=== PATIENT | female | born 1990 | race Hispanic/Latino ===

== ENCOUNTER 2018-08-17 14:15 | Outpatient (CLI) | payer OTHER ==
--- NOTE | 2018-08-17 15:09 | ULT ---
US OB Complete STANDARD History: Anatomy scan Comparison: None. Findings: Real-time grayscale color and spectral analysis of the gravid uterus was performed transabd ominal approach. Single viable intrauterine in breech position. The placenta is posterior. heart rate documented at 143 bpm. Cervix is closed measuring 4.8 cm in length. No placenta previa. Average ultrasound age is 25 weeks 6 day with estimated date of delivery November 24, 2018. Amniotic fluid index measures 13.66 cm. Biometry: Biparietal diameter: 6.39 cm, 25 weeks 6 day Head circumference: 23.19 cm, 25 week 2 day Abdominal circumference: 21.06 cm, 25 week 5 day Femur length: 4.8 cm, 26 week 1 day Estimated weight is 1 lb. 14 oz., 29th percentile. Anatomy: The head, cerebellum, cisterna magna, lateral ventricles, four-chamber heart, stomach, kidne ys, spine, cord insertion, bladder, lips/nose, upper extremities, lower kidneys, three-vessel cord are all normal. Impression: Normal single viable intrauterine with average ultrasound age 25 weeks 6 day wi th estimated date of delivery November 24, 2018.
== END 2018-08-17 14:16 | disposition home or self-care (01) ==
LOC: BICULT 14:15
PROVIDERS: ATTEND Family Medicine
DX: Z34.02 Encounter for supervision of normal first pregnancy, second trimester (principal); Z3A.25 25 weeks gestation of pregnancy
CPT/HCPCS: 76805

== ENCOUNTER 2018-11-22 19:30 | Inpatient (IN) | payer MEDICAID, OTHER, SELFPAY ==
[2018-11-22] MEDS ORDERED: NS / Oxytocin 40 units/1000ml 1,000 ML IV PRN (22:13)
[2018-11-22] MEDS ORDERED: Carboprost 250 MCG/ML AMP IM PRN (22:13)
[2018-11-22] MEDS ORDERED: hydrALAZINE 20 MG/ML VIAL SLOW IVP PRN (22:13)
[2018-11-22] MEDS ORDERED: HYDROcodone/Acetaminophen 5/325 mg Tablet PO PRN (22:13)
[2018-11-22] MEDS ORDERED: Misoprostol 200 MCG TAB PR PRN (22:13)
[2018-11-22] MEDS ORDERED: Ibuprofen 800 MG TAB PO PRN (22:13)
[2018-11-22] MEDS ORDERED: Butorphanol Tartrate 1 MG/ML VIAL SLOW IVP PRN (22:13)
[2018-11-22] MEDS ORDERED: Diphenoxylate HCl/Atropine Tablet PO PRN (22:13)
[2018-11-22] MEDS ORDERED: Methylergonovine 0.2 MG/ML VIAL IM PRN (22:13)
[2018-11-22] MEDS ORDERED: Lidocaine 1% (PF) 30 ML VIAL SC PRN (22:13)
[2018-11-22] MEDS ORDERED: Ondansetron PF 4 MG/2 ML Vial IVP PRN (22:13)
[2018-11-22] MEDS ORDERED: Promethazine HCl 25 MG/ML VIAL IM PRN (22:13)
[2018-11-22] MEDS ORDERED: NS w/ Oxytocin 10 units 500 ML IV SCH ×2 (22:15)
[2018-11-23 03:08] VITALS: BMI 22.9
[2018-11-23 03:50] LABS: Hemoglobin 10.8 g/dL (12.0-16.0); Mean Corpuscular HGB CONC 34.4 g/dL (32.0-36.0); Mean Corpuscular Hemoglobin 28.2 pg (27.0-31.0); Mean Corpuscular Volume 81.9 fL (78.0-98.0); Mean Platelet Volume 10.9 fL (7.4-10.4); Platelet Count 184 thou/uL (130-400); RBC Distribution Width 14.1 % (11.5-14.5); Red Blood Cell (RBC) Count 3.83 mill/uL (4.20-5.40); White Blood Cell (WBC) Count 8.2 thou/uL (4.8-10.8)
[2018-11-23] MEDS: Misoprostol 100 MCG TAB PO SCH ×3 (03:50→22:52)
[2018-11-23] MEDS: Lactated Ringer's 1,000 ML IV SCH ×3 (03:53→22:54)
[2018-11-23 04:27] LABS: HBSAg Index 0.16 S/CO (0-0.99); Hep B Surf Ag Non-Reactive S/CO (NonReactive)
[2018-11-23 07:43] LABS: Syphilis Antibody Nonreactive (Nonreactive); Syphilis Antibody Index 0.03 S/CO (<1.00 Non-Reactive)
[2018-11-23] MEDS ORDERED: Fentanyl 4 mcg/Bup 0.1% Cadd 100 ML ONE (12:13)
[2018-11-23] MEDS ORDERED: Naloxone HCl 0.4 mg/ml Vial IVP PRN ×2 (12:43)
[2018-11-23] MEDS ORDERED: Promethazine HCl 25 MG/ML VIAL IM PRN ×2 (12:43→21:28)
[2018-11-23] MEDS ORDERED: diphenhydrAMINE 50 MG/ML VIAL IVP PRN (12:43)
[2018-11-23] MEDS ORDERED: Acetaminophen 325 MG TAB PO PRN (12:43)
[2018-11-23] MEDS ORDERED: Lactated Ringer's 500 ML IV PRN (12:43)
[2018-11-23] MEDS ORDERED: Ondansetron PF 4 MG/2 ML Vial IVP PRN ×2 (12:43→21:28)
[2018-11-23] MEDS ORDERED: ePHEDrine/0.9% NaCl/PF SYRINGE 50 mg/10 ml SLOW IVP PRN (12:43)
[2018-11-23] MEDS ORDERED: Fentanyl 4 mcg/Bupivacaine 0.1% Cassette 100 ML EPIDURAL SCH (12:45)
[2018-11-23] MEDS ORDERED: Communication Order-Pharmacy FS SCH (12:45)
[2018-11-23] MEDS ORDERED: Lidocaine 2% MPF 10 ML AMP (For Epidural Use) ONE (15:00)
[2018-11-23] MEDS ORDERED: Methylergonovine 0.2 MG/ML VIAL ONE (18:21)
[2018-11-23] MEDS ORDERED: Misoprostol 200 MCG TAB ONE (18:21)
[2018-11-23] MEDS ORDERED: Lanolin Ointment 7 GM TUBE TOP PRN (21:28)
[2018-11-23] MEDS ORDERED: diphenhydrAMINE 25 MG CAP PO PRN (21:28)
[2018-11-23] MEDS ORDERED: HYDROcodone/Acetaminophen 5/325 mg Tablet PO PRN ×2 (21:28)
[2018-11-23] MEDS ORDERED: Milk Of Magnesia 30 ML UDCUP PO PRN (21:28)
[2018-11-23] MEDS ORDERED: hydrALAZINE 20 MG/ML VIAL SLOW IVP PRN (21:28)
[2018-11-23] MEDS ORDERED: NS / Oxytocin 40 units/1000ml 1,000 ML IV SCH (21:28)
[2018-11-23] MEDS ORDERED: Bisacodyl 10 MG SUPP PR PRN (21:28)
[2018-11-23] MEDS ORDERED: Benzocaine-Menthol 82.5 ML CAN TOP PRN (21:28)
[2018-11-23] MEDS ORDERED: Docusate Calcium (SURFAK) 240 MG CAP PO SCH (21:45)
[2018-11-23] MEDS: Ibuprofen 800 MG TAB PO SCH (22:23)
[2018-11-23] MEDS: Docusate Calcium (SURFAK) 240 MG CAP PO SCH (22:24)
[2018-11-24 05:15] LABS: #Basophils 0.1 thou/uL (0.0-0.2); #Lymphocytes 1.4 thou/uL (1.20-3.40); #Monocytes 1.2 thou/uL (0.11-0.59); #Neutrophils 14.7 thou/uL (1.40-6.50); %Basophils 0.4 % (0.0-1.0); %Eosinophils 0.1 % (0.0-10.0); %Lymphocytes 7.8 % (21.0-51.0); %Neutrophils 84.7 % (42.0-75.0); Hemoglobin 8.7 g/dL (12.0-16.0); Mean Corpuscular HGB CONC 32.9 g/dL (32.0-36.0); Mean Corpuscular Hemoglobin 27.2 pg (27.0-31.0); Mean Corpuscular Volume 82.7 fL (78.0-98.0); Mean Platelet Volume 10.6 fL (7.4-10.4); Platelet Count 131 thou/uL (130-400); RBC Distribution Width 14.1 % (11.5-14.5); Red Blood Cell (RBC) Count 3.19 mill/uL (4.20-5.40); White Blood Cell (WBC) Count 17.4 thou/uL (4.8-10.8)
[2018-11-24] MEDS: Ibuprofen 800 MG TAB PO SCH ×3 (05:48→21:43)
[2018-11-24] MEDS: Prenatal Vitamin 1 TAB PO SCH (09:00)
[2018-11-24] MEDS: Docusate Calcium (SURFAK) 240 MG CAP PO SCH ×2 (09:00→21:44)
[2018-11-24] MEDS: Ferrous Sulfate 325 MG TAB PO SCH ×2 (09:00→17:54)
[2018-11-24] MEDS ORDERED: Adacel (T-DAP) 0.5 ML SYRINGE IM ONE (09:00)
[2018-11-25] MEDS: Ibuprofen 800 MG TAB PO SCH ×2 (05:54→14:36)
[2018-11-25] MEDS: Ferrous Sulfate 325 MG TAB PO SCH (09:12)
[2018-11-25] MEDS: Prenatal Vitamin 1 TAB PO SCH (09:12)
[2018-11-25] MEDS: Docusate Calcium (SURFAK) 240 MG CAP PO SCH (09:12)
[2018-11-25 13:35] VITALS: BP 108/64; TEMP 98.4
--- NOTE | 2018-11-25 18:33 | OP ---
DATE OF PROCEDURE: 11/23/2018 DELIVERY NOTE: I was present for the delivery of this 28-year-old female, G1, now P1 of a viable female infant on 11/23/2018. delivered in OA presentation over a second-degree midline laceration. No nuchal cord was encountered. Delivery was uneventful and without difficulties. Cord blood was obtained. The placenta delivered spontaneously and intact with a 3-vessel cord noted. Bilateral labial lacerations and bilateral vaginal sidewall lacerations were repaired with 2-0 Vicryl. The perineal laceration was repaired with 2-0 Vicryl as well. The uterus was mildly atonic after delivery and responded to oxytocin infusion, bimanual massage, and Methergine x1. EBL was approximately 500 due to the atonic uterus and multiple lacerations. She remained in recovery in stable condition. The infant also in stable condition. Apgars 9 and 9 at one and five minutes respectively. Job ID: [id number]
== END 2018-11-25 14:35 | disposition home or self-care (01) | DRG 807 ==
LOC: UNDOADMIN 20:24 → L&D 20:24 → 3SW 11-23 22:04
PROVIDERS: ADMIT Family Medicine; ATTEND Family Medicine
PROC: 10E0XZZ Delivery of Products of Conception, External Approach (ICD-10-PCS; principal; 2018-11-23)
PROC: 10907ZC Drainage of Amniotic Fluid, Therapeutic from Products of Conception, Via Natural or Artificial Opening (ICD-10-PCS; 2018-11-23)
PROC: 3E0P7VZ Introduction of Hormone into Female Reproductive, Via Natural or Artificial Opening (ICD-10-PCS; 2018-11-23)
PROC: 0KQM0ZZ Repair Perineum Muscle, Open Approach (ICD-10-PCS; 2018-11-23)
DX: O69.81X0 Labor and delivery complicated by cord around neck, without compression, not applicable or unspecified (principal); Z37.0 Single live birth; O70.1 Second degree perineal laceration during delivery; Z3A.39 39 weeks gestation of pregnancy; O75.89 Other specified complications of labor and delivery
CPT/HCPCS: 36415; 51702; 85025; 85027; 86780; 86850; 86900; 86901; 87340; J0595; J2001; J2210; J2590